=== PATIENT | female | born 1950 | race African-American/Black ===

== ENCOUNTER → 2019-10-15 | Outpatient (CLI) | payer MEDICARE ==
--- NOTE | 2019-10-15 17:54 | EKG ---
[address] [address] Test Date: 2019-10-15 Test Time: 17:41:54 Pat Name: FELICITA THOMPSON Department: Room: Gender: F [employer]phalt [employer]cher: : [id number] Requested By: PRABHA ALLAN Order Number: [id number] Reading MD: Measurements Intervals [place] Rate: 70 P: 40 KS: 130 QRS: -42 QRSD: 90 T: -9 QT: 374 QTc: 407 Interpretive Statements SINUS RHYTHM ABNORMAL LEFT AXIS DEVIATION LEFT ANTERIOR FASCICULAR BLOCK CONSIDER LEFT VENTRICULAR HYPERTROPHY QRS(T) CONTOUR ABNORMALITY CONSIDER ANTEROSEPTAL MYOCARDIAL DAMAGE T ABNORMALITY IN INFERIOR LEADS ABNORMAL ECG RI6.01 No previous ECG available for comparison
--- NOTE | 2019-10-15 22:41 | RAD ---
Study: CR CHEST PA LATERAL Indication: Cough. Chest pain. Recent travel to [place]. Comparison: None. Findings: The cardiomediastinal silhouette is borderline prominent in size. Mild tortuosity of the thoracic aorta. The keisha are symmetric. No lobar consolidation, pleural effusion or pneumothorax. Mild asymmetric elevation of the right hemidiaphragm. Impression: No acute radiographic abnormality of the chest. The cardiomediastinal silhouette is at the upper limits of normal for size. Electronically signed by: EMBER KENNEY MD (10/15/2019 10:38 PM) [id number]
== END | disposition home or self-care (01) ==
LOC: EKG 17:22
PROVIDERS: ATTEND Family Medicine
DX: I44.4 Left anterior fascicular block (principal); R94.31 Abnormal electrocardiogram [ECG] [EKG]; J45.991 Cough variant asthma
CPT/HCPCS: 71046; 93005

== ENCOUNTER → 2019-10-17 | Outpatient (CLI) | payer MEDICARE, BC ==
[~2019-10-17] MED LIST: IOHEXOL 350 MG/ML 100 ML VIAL. IV ONE
--- NOTE | 2019-10-17 12:41 | RAD ---
Examination: CT angiography chest HISTORY: History of chest pain, cough COMPARISON: None available TECHNIQUE: Axial CT angiographic images of chest were performed with IV contrast. Coronal and sagittal 3-D MIP reformats are performed Exposure: One or more of the following individualized dose reduction techniques were utilized for this examination: 1. Automated exposure control 2. Adjustment of the mA and/or kV according to patient size 3. Use of iterative reconstruction technique FINDINGS: The central airways are patent. The ascending aorta measures 4 cm in transverse dimension. No evidence of filling defect identified in the main pulmonary arterial trunk and right and left main pulmonary arteries and the visualized lobar, segmental branches of the pulmonary arteries. Minimal bibasilar lung atelectasis. The liver, spleen, grossly appears unremarkable. Mild degenerative changes thoracic spine. Moderate degenerative changes thoracic spine. IMPRESSION: 1. No evidence of pulmonary embolism. 2. Minimal bibasilar lung atelectasis. Electronically signed by: Chema Hall MD (10/17/2019 12:38 PM) [id number]
== END | disposition home or self-care (01) ==
LOC: CT 11:06
PROVIDERS: ATTEND Family Medicine
DX: J98.11 Atelectasis (principal); J45.991 Cough variant asthma
CPT/HCPCS: 71275; Q9967

== ENCOUNTER 2021-01-07 16:44 | Emergency (ER) | payer MEDICARE, BC ==
[~2021-01-07] VITALS: Ht 160 cm; Wt 88.6 kg
--- NOTE | 2021-01-07 17:34 | RAD ---
Left lower extremity venous Doppler dated 01/07/2021 COMPARISON: none. CLINICAL INDICATION: Left lower extremity swelling FINDINGS: Grayscale, color-flow and spectral waveform analysis performed to include the deep venous system of l eft lower extremity. There is normal compressibility, phasicity and augmentation of flow throughout. No filling defects are seen. IMPRESSION: No evidence of left lower extremity deep vein thrombosis. Electronically signed by: Garrick Mcbride MD (01/07/2021 5:31 PM) [id number]
[2021-01-07 17:36] VITALS: BP 124/78
--- NOTE | 2021-01-07 17:46 | PHYS DOC ---
Past History Past Medical History: Hypertension, Other Additional Past Medical Histor: allergies; kidney cancer Past Surgical History: Hysterectomy, Knee Replacement, Oophorectomy, Other Additional Past Surgical Histo: left kidney 15% removed due to ca; cervical cancer Alcohol Use: Occasionally General Adult EDM: Chief Complaint: KNEE SWELLING HPI: HPI: 70-year-old female presents with left lower leg swelling. The patient had right knee replacement surgery a few weeks ago. She stopped Lovenox 8 days ago. She began to have swelling in the left leg starting 7 days ago. She is also had bruising along the medial aspect of the leg. Her primary physician is concerned about DVT so sent her to the emergency room. The patient states that she does not have shortness of breath, headaches, dizziness or any other symptoms other than the swelling and discomfort in the left leg. Denies fever or chills. Review of Systems: Review of Systems: Constitutional: Denies fever or chills Eyes: Denies change in visual acuity HENT: Denies nasal congestion or sore throat Respiratory: Denies cough or shortness of breath Cardiovascular: Denies chest pain or edema GI: Denies abdominal pain, nausea, vomiting, bloody stools or diarrhea : Denies dysuria Musculoskeletal: Left lower extremity swelling Integument: Denies rash Neurologic: Denies headache, focal weakness or sensory changes Endocrine: Denies polyuria or polydipsia Lymphatic: Denies swollen glands Psychiatric: Denies depression or anxiety Allergies: Allergies: Allergies Coded Allergies Type Severity Reaction Last Updated Verified No Known Drug Allergies 01/07/21 No Physical Exam: PE: Constitutional: Well developed, well nourished, no acute distress, non-toxic appearance. [] HENT: Normocephalic, atraumatic, bilateral external ears normal, oropharynx moist, no oral exudates, nose normal. [] Eyes: PERRLA, EOMI, conjunctiva normal, no discharge. [] Neck: Normal range of motion, no tenderness, supple, no stridor. [] Cardiovascular: Heart rate regular rhythm, no murmur [] Lungs & Thorax: Bilateral breath sounds clear to auscultation [] Abdomen: Bowel sounds normal, soft, no tenderness, no masses, no pulsatile masses. [] Skin: Warm, dry, no erythema, no rash. [] Back: No tenderness, no CVA tenderness. [] Extremities: Left lower leg with swelling compared to right. Multiple small areas of ecchymosis along the medial knee and thigh left leg. [] Neurologic: Alert and oriented X 3, normal motor function, normal sensory function, no focal deficits noted. [] Psychologic: Affect normal, judgement normal, mood normal. [] Current Patient Data: Vital Signs: Vital Signs Date Time Temp Pulse Resp B/P (MAP) Pulse Ox O2 Delivery O2 Flow Rate FiO2 01/07/21 16:55 98.1 101 18 156/85 (108) 97 Room Air EKG: EKG: [] Radiology/Procedures: Radiology/Procedures: [] Impressions: Left lower extremity venous Doppler dated 01/07/2021 COMPARISON: none. CLINICAL INDICATION: Left lower extremity swelling FINDINGS: Grayscale, color-flow and spectral waveform analysis performed to include the deep venous system of left lower extremity. There is normal compressibility, phasicity and augmentation of flow throughout. No filling defects are seen. IMPRESSION: No evidence of left lower extremity deep vein thrombosis. Electronically signed by: Tashi Mcbride MD (01/07/2021 5:31 PM) [id number] DICTATED AND SIGNED BY: TASHI MCBRIDE MD DATE: 01/07/21 173 CC: LORI GARCÍA DO; PRABHA ALLAN MD ~MTH0 0 Heart Score: C/O Chest Pain: N/A Risk Factors: Risk Factors: DM, Current or recent (<one month) smoker, HTN, HLP, family history of CAD, obesity. Risk Scores: Score 0 - 3: 2.5% MACE over next 6 weeks - Discharge Home Score 4 - 6: 20.3% MACE over next 6 weeks - Admit for Clinical Observation Score 7 - 10: 72.7% MACE over next 6 weeks - Early Invasive Strategies Course & Med Decision Making: Course & Med Decision Making Pertinent Labs and Imaging studies reviewed. (See chart for details) The patient's ultrasound is negative for DVT. She is stable for discharge at this time. [] Dragon Disclaimer: Dragon Disclaimer: This electronic medical record was generated, in whole or in part, using a voice recognition dictation system. Departure Departure: Impression: Primary Impression: Swelling of left lower extremity Disposition: HOME / SELF CARE / HOMELESS Condition: STABLE Referrals: PRABHA ALLAN MD (PCP) Patient Instructions: Peripheral Edema LORI GARCÍA 16, 2021 17:46
== END 2021-01-07 17:56 | disposition home or self-care (01) ==
LOC: ER 16:44
DX: S80.12XA Contusion of left lower leg, initial encounter (principal); R22.42 Localized swelling, mass and lump, left lower limb; I10 Essential (primary) hypertension; Z96.651 Presence of right artificial knee joint; X58.XXXA Exposure to other specified factors, initial encounter; Y93.89 Activity, other specified; Y92.89 Other specified places as the place of occurrence of the external cause; Y99.8 Other external cause status
CPT/HCPCS: 93971; 99284